=== PATIENT | male | born 1975 | race Hispanic/Latino ===

== ENCOUNTER 2016-11-22 12:50 | Emergency (ER) | payer MEDICAID, OTHER ==
[2016-11-22 12:56] VITALS: BMI 24.3
[2016-11-22] MEDS ORDERED: Naloxone 0.4 mg/ml Inj (Adult) IV STA (13:05)
[2016-11-22] MEDS ORDERED: Sodium Chloride 0.9% 1,000 ML IV ONE (13:06)
[2016-11-22] MEDS ORDERED: Naloxone 0.4 mg/ml Inj (Adult) ONE ×5 (13:09→14:38)
[2016-11-22] MEDS ORDERED: Naloxone 0.4 mg/ml Inj (Adult) IVP ONE ×3 (13:10→14:44)
--- NOTE | 2016-11-22 13:11 | C.PDOC ---
History Of Present Illness 40 year old male presents to the ED by EMS for a heroin overdose. Patient was found standing and sleepy on route to ED. LMTIED DUE TO CLIN COND PER EMS, PT W HEROIN OVERDOSE. EMS FOUND PT STANDING, INITIAL RESPONSE BY FD. SLEEPY EN ROUTE. NO MEDS GIVEN. PT UNRESPONSIVE TO QUESTIONS. MULT PRIOR ER VISITS FOR HEROIN OD ROS UTO EXAM MOD DIST PUPILS SLUGGISH, REACTIVE +GAG BRADYPNEA. CTA B/L POOR EFFPRT CV RRR +PALP RADIAL PULSE SKIN WARM DRY PSYCH +GROSS OPIATE INTOX, +RESPONSE TO PAIN STIM THEN FALLS BACK ASLEEP. NEURO NO FOCAL DEF LIMITED DUE TO CLIN COND Time Seen by Provider: 11/22/16 12:55 History Per: EMS History/Exam Limitations: clinical condition Onset/Duration Of Symptoms: Hrs Past Medical History Vital Signs: Last Vital Signs Temp 97.9 F 11/22/16 14:19 Pulse 60 11/22/16 14:19 Resp 16 11/22/16 14:19 BP 99/57 L 11/22/16 14:19 Pulse Ox 95 11/22/16 14:19 - Medical History PMH: Anxiety, Back Problems, Bipolar Disorder, Depression, Hepatitis (C), Post Traumatic Stress Disorder Family History: States: Unknown Family Hx - Social History Hx Tobacco Use: Yes Hx Alcohol Use: No Hx Substance Use: Yes (IVDU Heroin Cocaine) - Immunization History Hx Tetanus Toxoid Vaccination: No Hx Influenza Vaccination: No Hx Pneumococcal Vaccination: No Review Of Systems Constitutional: Negative for: Fever, Chills, Sweats Cardiovascular: Negative for: Chest Pain Respiratory: Negative for: Shortness of Breath Gastrointestinal: Negative for: Vomiting, Abdominal Pain, Diarrhea Physical Exam - Physical Exam Appears: Non-toxic, No Acute Distress Skin: Warm, Dry Head: Normacephalic Eye(s): bilateral: Other (pupils sluggish and reactive ) Ear(s): Bilateral: Normal Oral Mucosa: Moist Neck: Supple Respiratory: No Rales, No Rhonchi, No Stridor, No Wheezing Gastrointestinal/Abdominal: Soft, No Tenderness, No Distention, No Guarding, No Rebound Extremity: No Tenderness Neurological/Psych: Other (neuro no focal deficits) Progress - Re-Evaluation Re-evaluation Note: 11/22/16 13:12 S/P NARCAN IMPROVED ALERTNESS, AO3. 11/22/16 14:52 RECUR APNEA, SX LIKE INITIAL EVAL. S/P REPEAT NARCAN, NOW ALERT RESOLVED. PT DOES NOT WISH FURTHER ER EVAL VSS - Data Reviewed Data Reviewed: Old records - Critical Care Citical Care: Excluding Proc Time Critical Care Time: 90 minutes - Continuity of Care Discussed patient case with:: Patient Disposition Counseled Patient/Family Regarding: Diagnosis, Need For Followup - Disposition Referrals: [facility] [Outside] [facility] [Outside] Disposition: HOME/ ROUTINE Disposition Time: 14:52 Condition: IMPROVED Instructions: Opioid Overdose (ED) - Clinical Impression Clinical Impression: Opiate overdose - Scribe Statement The provider has reviewed the documentation as recorded by the Scribe Rachel Poon All medical record entries made by the Scribe were at my direction and personally dictated by me. I have reviewed the chart and agree that the record accurately reflects my personal performance of the history, physical exam, medical decision making, and the department course for this patient. I have also personally directed, reviewed, and agree with the discharge instructions and disposition.
[2016-11-22 13:23] VITALS: RESP 16
[2016-11-22 14:20] VITALS: BP 99/57; PULSE 60; TEMP 97.9; O2SAT 95
== END 2016-11-22 15:25 | disposition home or self-care (01) ==
LOC: C.ER 12:50
DX: T40.1X4A Poisoning by heroin, undetermined, initial encounter (principal); R53.83 Other fatigue; F11.20 Opioid dependence, uncomplicated; Y92.9 Unspecified place or not applicable
CPT/HCPCS: 82948; 96361; 96374; 96376; 99285; J2310; J7040

== ENCOUNTER 2017-03-25 11:12 | Emergency (ER) | payer MEDICAID ==
[2017-03-25 11:13] VITALS: BMI 24.3
[2017-03-25 11:20] VITALS: TEMP 97.9
--- NOTE | 2017-03-25 11:56 | C.PDOC ---
History Of Present Illness 41 year old male presents to ED for wound evaluation. Pt states he had laceration repair to right 3rd, 4th, and 5th digits at [facility] on 03/21. Pt states he was supposed to follow up with plastic surgeon on 03/24 but was not able to get to their office in [place]. Denies any fever, swelling, or any other associated symptoms at this time. REQUESTING WOUND EVAL S/P REPAIR @ [facility] 03/21. SP LAC REPAIR R 3,4,5 FINGERS. PS WAS SUPPOSED TO FU W PLASTIC SURGEON 03/24 BUT UNABLE TO GET TO THEIR OFFICE IN [place]. DENIES FEVER, SWELL, OTHER ASSOC SX. EXAM NAD SKIN DRESSING INTACT, SUTURES INTACT DISTAL TIPS R 4,5,6 FINGERS. HEALING WELL, NO INFXN, ERYTHEMA EXT NO FINGER DEFORM, SWELL. AROM FINGERS WO DIFF Time Seen by Provider: 03/25/17 11:32 Chief Complaint (Nursing): Abnormal Skin Integrity History Per: Patient History/Exam Limitations: no limitations Onset/Duration Of Symptoms: Days Ago (4) Current Symptoms Are (Timing): Still Present Location Of Injury: Right: Hand Quality Of Symptoms: Painful. denies: Swollen, Draining Additional History Per: Patient Past Medical History Reviewed: Historical Data, Nursing Documentation, Vital Signs Vital Signs: Last Vital Signs Temp 97.9 F 03/25/17 11:17 Pulse 77 03/25/17 11:17 Resp 20 03/25/17 11:17 BP 101/63 03/25/17 11:17 Pulse Ox 95 03/25/17 12:15 - Medical History PMH: Anxiety, Back Problems, Bipolar Disorder, Depression, Hepatitis (C), Post Traumatic Stress Disorder Family History: States: Unknown Family Hx - Social History Hx Tobacco Use: Yes Hx Alcohol Use: No Hx Substance Use: Yes (IVDU Heroin Cocaine) - Immunization History Hx Tetanus Toxoid Vaccination: No Hx Influenza Vaccination: No Hx Pneumococcal Vaccination: No Review Of Systems Except As Marked, All Systems Reviewed And Found Negative. Constitutional: Negative for: Fever, Chills Skin: Positive for: Other (laceration repair check to R 3,4,5 digits) Neurological: Negative for: Weakness, Numbness Physical Exam - Physical Exam Appears: Non-toxic, No Acute Distress Skin: Warm, Dry, Other (skin dressing, and sutures intact over the distal tips of right 3,4,5 digits ) Extremity: Normal ROM (FROM of right hand digits), No Tenderness, Capillary Refill (<2 sec.), No Deformity, No Swelling Pulses: Left Radial: Normal, Right Radial: Normal Neurological/Psych: Oriented x3, Normal Speech, Normal Motor, Normal Sensation ED Course And Treatment O2 Sat by Pulse Oximetry: 95 (on RA) Pulse Ox Interpretation: Normal Progress - Data Reviewed Data Reviewed: Old records Disposition Counseled Patient/Family Regarding: Diagnosis, Need For Followup - Disposition Referrals: [facility] [Outside] [facility] [Outside] Disposition: HOME/ ROUTINE Disposition Time: 12:20 Condition: IMPROVED Additional Instructions: SUTURE REMOVAL PREVIOUSLY ADVISED 10 DAYS AFTER PLACEMENT. WOUND DRESSING CHANGE TWICE DAILY. Instructions: Care For Your Stitches (ED) Forms: [employer] ([place] Islander) - Clinical Impression Clinical Impression: Visit for wound check - Scribe Statement The provider has reviewed the documentation as recorded by the Scribe Iris Ann All medical record entries made by the Scribe were at my direction and personally dictated by me. I have reviewed the chart and agree that the record accurately reflects my personal performance of the history, physical exam, medical decision making, and the department course for this patient. I have also personally directed, reviewed, and agree with the discharge instructions and disposition.
[2017-03-25] MEDS ORDERED: Bacitracin 500 Units/gm Oint Foilpak UD ONE (12:17)
[2017-03-25 12:34] VITALS: BP 110/65; PULSE 72; RESP 18; O2SAT 97
== END 2017-03-25 12:34 | disposition home or self-care (01) ==
LOC: C.ER 11:12
DX: S61.212D Laceration without foreign body of right middle finger without damage to nail, subsequent encounter (principal); S61.214D Laceration without foreign body of right ring finger without damage to nail, subsequent encounter; S61.216D Laceration without foreign body of right little finger without damage to nail, subsequent encounter; X58.XXXD Exposure to other specified factors, subsequent encounter; Y92.89 Other specified places as the place of occurrence of the external cause

== ENCOUNTER 2017-04-05 12:01 | Emergency (ER) | payer MEDICAID ==
[2017-04-05 12:02] VITALS: BMI 24.3
[2017-04-05 12:16] VITALS: BP 98/62; PULSE 52; RESP 18; TEMP 97.8; O2SAT 94
--- NOTE | 2017-04-05 12:40 | C.PDOC ---
History Of Present Illness 04/05/2017 Cheng Cuevas is a 41 year old male, who presents to the emergency department following up a removal of sutures. Two sutures were done on third, fourth, and fifth right digits after an accident by getting cut with a saw on . Patient denies any fever, redness, or complication status post procedure. Time Seen by Provider: 04/05/17 12:26 Chief Complaint (Nursing): Suture/Staple Removal History Per: Patient History/Exam Limitations: no limitations Onset/Duration Of Symptoms: Other (sutures done on 03/28/2017) Current Symptoms Are (Timing): Gone Location Of Injury: Right: Hand (3rd, 4th, 5th digits) Past Medical History Reviewed: Historical Data, Nursing Documentation, Vital Signs Vital Signs: Last Vital Signs Temp 97.8 F 04/05/17 12:12 Pulse 52 L 04/05/17 12:12 Resp 18 04/05/17 12:12 BP 98/62 L 04/05/17 12:12 Pulse Ox 94 L 04/07/17 11:45 - Medical History PMH: Anxiety, Back Problems, Bipolar Disorder, Depression, Hepatitis (C), Post Traumatic Stress Disorder Denies: Diabetes, HIV, HTN, Seizures, Sexually Transmitted Disease Family History: States: Unknown Family Hx - Social History Hx Tobacco Use: Yes Hx Alcohol Use: No Hx Substance Use: Yes (IVDU Heroin Cocaine) - Immunization History Hx Tetanus Toxoid Vaccination: No Hx Influenza Vaccination: No Hx Pneumococcal Vaccination: No Review Of Systems Constitutional: Negative for: Fever Skin: Positive for: Other (suture removal of right 3rd,4th, & 5th digits on hand. no erythema). Negative for: Bruising Neurological: Negative for: Headache Physical Exam - Physical Exam Appears: Non-toxic, No Acute Distress Skin: Warm, Dry, Other (2 sutures in 3rd, 4th and 5th right fingers, no erythema , thick scab on 4th and 5th fingers) Neurological/Psych: Oriented x3, Normal Speech, Normal Motor, Normal Sensation Gait: Steady ED Course And Treatment O2 Sat by Pulse Oximetry: 94 (room air) Pulse Ox Interpretation: Normal Medical Decision Making Medical Decision Makin04/05/2017 Impression: 41 year old male presents today for suture removal on right hand digits 3rd, 4th , and 5th. No erythema or abscess. No complications or fever. Plan: -- Reassess and disposition Prior Visits: Notes and results from previous visits were reviewed. On 03/28/2017 patient came in complaining of injury laceration on right hand digits 3rd, 4th and 5th. Re-evaluation: 2 sutures removed from 3rd, 4th and 5th right fingertips, no complications. Patient is in no acute distress. Discussed results and plan with patient. Patient understands results and is agreeable with plan. All questions answered and patient is stable for discharge. Disposition Counseled Patient/Family Regarding: Diagnosis - Disposition Disposition: HOME/ ROUTINE Disposition Time: 13:15 Condition: STABLE Additional Instructions: Do not pick at scabs, they will fall off on their own. Instructions: Stitches Removal (ED) Forms: [facility] [facility] (Macedonian), General Discharge Instructions - Clinical Impression Clinical Impression: Removal of suture - Scribe Statement The provider has reviewed the documentation as recorded by the Scribe 04/05/2017 Scribe Attestation: Nini Sharma MD Scribe Attestation: All medical record entries made by the Scribe were at my direction and personally dictated by me. I have reviewed the chart and agree that the record accurately reflects my personal performance of the history, physical exam, medical decision making, and the department course for this patient. I have also personally directed, reviewed, and agree with the discharge instructions and disposition.
== END 2017-04-05 13:29 | disposition home or self-care (01) ==
LOC: C.ER 12:01
DX: Z48.02 Encounter for removal of sutures (principal)

== ENCOUNTER 2017-06-24 23:05 | Emergency (ER) | payer MEDICAID ==
[2017-06-24 23:06] VITALS: BMI 24.3
[2017-06-24 23:14] VITALS: BP 114/77; PULSE 70; RESP 18; TEMP 97; O2SAT 100
[2017-06-24] MEDS ORDERED: Albuterol-Ipratrop 3 mg / 0.5 (3 ml) UD IH STA (23:34)
[2017-06-24] MEDS ORDERED: Albuterol 0.083% Inhal Sol (2.5 mg/3 mL) UD ONE (23:45)
[2017-06-24 23:55] LABS: URINE BILIRUBIN NEGATIVE (NEGATIVE); URINE BLOOD NEGATIVE (NEGATIVE); URINE COLOR Yellow (YELLOW); URINE GLUCOSE (UA) NORMAL (Normal); URINE KETONE NEGATIVE (NEGATIVE); URINE LEUKOCYTE ESTERASE NEG Leu/uL (Negative); URINE PROTEIN NEGATIVE (NEGATIVE); WBC URINE < 1 /hpf (0-5)
--- NOTE | 2017-06-24 23:58 | C.PDOC ---
History Of Present Illness 41 y/o male w/PMHx of asthma, opioid abuse, presents to the ED with a complaint of flu-like symptoms for the last 2 days. Patient notes developing dizziness, lightheadedness since early today, and a productive cough with clear sputum today. Otherwise, pt denies fever, SPAIN, drooling, neck pain, wheezing, CP, SOB, dyspnea, palpitation, abd. pain, V/D, back pain, UTI sx, denies recent travel or known sick contact. Ambulate to ED for evaluation, not in any apparent distress. Time Seen by Provider: 06/24/17 23:14 Chief Complaint (Nursing): Flu-like Symptoms History Per: Patient History/Exam Limitations: no limitations Onset/Duration Of Symptoms: Days (2 days) Current Symptoms Are (Timing): Still Present Associated Symptoms: Cough, Sputum (clear). denies: Fever, Neck Pain Recent travel outside of the [place]: No Past Medical History Reviewed: Historical Data, Nursing Documentation, Vital Signs Vital Signs: Last Vital Signs Temp 97 F L 06/24/17 23:11 Pulse 70 06/24/17 23:11 Resp 18 06/24/17 23:11 BP 114/77 06/24/17 23:11 Pulse Ox 100 06/25/17 00:42 - Medical History PMH: Anxiety, Back Problems, Bipolar Disorder, Depression, Hepatitis (C), Post Traumatic Stress Disorder Denies: Diabetes, HIV, HTN, Seizures, Sexually Transmitted Disease Surgical History: No Surg Hx Family History: States: Unknown Family Hx - Social History Hx Tobacco Use: Yes Hx Alcohol Use: No Hx Substance Use: Yes (IVDU Heroin Cocaine) - Immunization History Hx Tetanus Toxoid Vaccination: No Hx Influenza Vaccination: No Hx Pneumococcal Vaccination: No Review Of Systems Constitutional: Negative for: Fever Cardiovascular: Positive for: Light Headedness. Negative for: Chest Pain Respiratory: Positive for: Cough (productive, clear sputum). Negative for: Shortness of Breath Musculoskeletal: Negative for: Neck Pain, Back Pain Neurological: Positive for: Dizziness. Negative for: Headache Physical Exam - Physical Exam Appears: Well, Non-toxic, No Acute Distress Skin: Normal Color, Warm, Dry, No Rash Head: Atraumatic, Normacephalic Eye(s): bilateral: PERRL Ear(s): Bilateral: Normal Nose: No Flaring, Discharge (B/L scant, clear) Oral Mucosa: Moist, No Drooling, No Trismus Tongue: Normal Appearing Lips: Normal Appearing Throat: No Drooling Neck: Trachea Midline, Supple Chest: Symmetrical Cardiovascular: Rhythm Regular, No Murmur, No JVD Respiratory: No Decreased Breath Sounds, No Accessory Muscle Use, No Rhonchi, No Stridor, No Wheezing Gastrointestinal/Abdominal: Soft, No Tenderness, No Distention, No Guarding, No Rebound Back: No CVA Tenderness Extremity: Normal ROM, No Deformity, No Swelling Neurological/Psych: Oriented x3, Normal Speech, Normal Cognition, Normal Motor, Normal Sensation, Normal Reflexes ED Course And Treatment ECG: Interpreted By Me, Viewed By Me (and ED attending) ECG Interpretation: No Changes From Prior Interpretation Of ECG: Sinus saritha@47/min, NAD, no acute T wave or ST-T Changes. O2 Sat by Pulse Oximetry: 100 Pulse Ox Interpretation: Normal - Radiology CXR: Interpreted by Me, Viewed By Me CXR Interpretation: Yes: No Acute Disease Progress Note: Plan: EKG, CXR, drug screen, and UA ordered. Albuterol and Prednisone administered. On re-eval, pt is afebrile, hemodynamicaly stable. Tolerate PO well in ED. Ambulatory in ED with stable gait. PulseOx 100% RA. ENT: no acute findings. Neck: Supple, (-) meningeal sign. Lungs: CTA B/L, BS equal B/L. Abd: benign. Neurologicaly intact. EKG, CXR review and appears normal. Drug screen (+) polysubstance. Pt has clinical findings c/w max illness , polysubstance abuse. Pt advised on course of ds. ref. to F/u with PMD, DEtox in 2-3 days for re-eval. return to ED if any worsening or new changes. Disposition Counseled Patient/Family Regarding: Studies Performed, Diagnosis, Need For Followup, Rx Given - Disposition Referrals: [facility] [Outside] Disposition Time: 00:42 Condition: STABLE Additional Instructions: ENCOURAGE FLUIDS TAKE MEDICATION PRESCRIBED FOLLOW UP WITH PMD IN 2-3 DAYS FOR RE-EVALUATION. RETURN TO ED IF ANY WORSENING OR NEW CHANGES. Prescriptions: Albuterol HFA [Ventolin HFA 90 mcg/actuation (8 g)] 1 puff IH Q6 #1 inhaler Prednisone [Deltasone] 40 mg PO DAILY #6 tablet Instructions: Viral Syndrome (ED), Polysubstance Abuse (ED) Forms: [facility] [facility] (Pashto) - Clinical Impression Clinical Impression: Viral illness, Polysubstance (excluding opioids) dependence - Scribe Statement The provider has reviewed the documentation as recorded by the Scribe Kelsey Merlos All medical record entries made by the Scribe were at my direction and personally dictated by me. I have reviewed the chart and agree that the record accurately reflects my personal performance of the history, physical exam, medical decision making, and the department course for this patient. I have also personally directed, reviewed, and agree with the discharge instructions and disposition.
--- NOTE | 2017-06-25 08:24 | RAD ---
HISTORY: Cough COMPARISON: 01/02/2014 TECHNIQUE: Chest PA and lateral FINDINGS: LUNGS: No active pulmonary disease. PLEURA: No significant pleural effusion identified. No pneumothorax apparent. CARDIOVASCULAR: Normal. OSSEOUS STRUCTURES: No significant abnormalities. VISUALIZED UPPER ABDOMEN: Normal. OTHER FINDINGS: None. IMPRESSION: No active disease.
--- NOTE | 2017-06-25 21:44 | CARD ---
APPROVED REPORT EKG Measurement Heart [id number] <Conclusion> Sinus bradycardia Otherwise normal ECG
== END 2017-06-25 01:00 | disposition home or self-care (01) ==
LOC: C.ER 23:05
DX: B34.9 Viral infection, unspecified (principal); F19.20 Other psychoactive substance dependence, uncomplicated